=== PATIENT | female | born 1970 | race Caucasian/White ===

== ENCOUNTER 2017-07-30 20:28 | Emergency (ER) | payer SELFPAY ==
[~2017-07-30] VITALS: Ht 162.6 cm; Wt 84.8 kg
[~2017-07-30 20:28] MED LIST: NOHOMEMEDS; PROTONIX40 MG PO; Vicodin,Lortab 5/500 PO
[2017-07-30 23:16] VITALS: BP 151/83
== END 2017-07-30 23:17 | disposition left against medical advice (07) ==
LOC: EME 20:28
DX: R55 Syncope and collapse (principal); S00.11XA Contusion of right eyelid and periocular area, initial encounter; W18.30XA Fall on same level, unspecified, initial encounter; I10 Essential (primary) hypertension; F32.9 Major depressive disorder, single episode, unspecified; K21.9 Gastro-esophageal reflux disease without esophagitis
CPT/HCPCS: 99281; 99284